=== PATIENT | female | born 1930 | race Caucasian/White ===

== ENCOUNTER 2017-10-07 12:10 | Inpatient (IN) ==
[~2017-10-07 12:10] MED LIST: Aminoglycoside Consult 1 EACH MC ONE
[2017-10-07] MEDS ORDERED: Ondansetron 4 MG/2 ML VIAL IVP PRN (12:11)
[2017-10-07] MEDS ORDERED: Atropine Sulfate 1% 40 DROP/2 ML BOTTLE SL PRN (12:11)
[2017-10-07] MEDS ORDERED: Acetaminophen 650 MG RECTAL SUPP RC PRN (12:11)
[2017-10-07] MEDS ORDERED: *HR* FentaNYL PATCH 25 MCG PATCH TD SCH (12:15)
[2017-10-07] MEDS ORDERED: Scopolamine Patch 1.5 MG PATCH.TD72 TD SCH (12:15)
--- NOTE | 2017-10-07 12:49 | Pallative History & Physical ---
Date of Encounter: 10/07/17 Time of Encounter: 12:47 Assessment and Plan (1) Acute and chronic respiratory failure ([id number]) Status: Acute Continue oxygen therapy. We will use medications for shortness of breath. A shingling general inpatient hospice today. Qualifiers: Respiratory failure complication: hypoxia Qualified Code(s): J96.21 - Acute and chronic respiratory failure with hypoxia (2) Atrial fibrillation with RVR Status: Acute Under control at this time. Continue to watch (3) Constipation Status: Acute Currently having bowel movements continue bowel regimen of suppositories. Otherwise she is really not taking any by mouth expectorate little in the way of output. Qualifiers: Constipation type: unspecified constipation type Qualified Code(s): K59.00 - Constipation, unspecified (4) Goals of care, counseling/discussion Status: Acute DNR comfort care, extubation the patient has required a large number medications to keep her comfortable. I therefore believe that this reaches the criteria for general inpatient hospice is medications are be given to frequently for a group home to be able to administer. At this time hospice cannot provide nursing care at home they cannot provide care at home adequate for this patient. Therefore the patient is here on general inpatient service. Continue to observe daily. (5) HCAP (healthcare-associated pneumonia) Status: Acute Blood cultures are clear, and the patient has completed out course of antibiotics. Internal Medicine - H&P: HPI Chief complaint: sob Admitted From: Intrahospital Transfer Plans for Post Hospital Care: Hospice - Home History of present illness: Ms. Boss is a 87 year old female The patient was originally admitted respiratory failure secondary to pneumonia and atrial fibrillation with rapid ventricular response. She did poorly on the ventilator and failed numerous CPAP trials. Finally Bashan was attempted she lasted for proximally 4 hours before needing to be reintubated. Family then gave the opinion patient would not want to be trached. And with the decision of trach no trach was reached and was for extubation and comfort care with hospice. Family has agreed to this and patient is being admitted at this point in time to hospice. Patient will be Gen. inpatient or symptom management of shortness of breath. At this time the patient is unresponsive to verbal and appears quite comfortable. Past Med Surg Social Fam HX - Past Medical History Medical history: arthritis, atrial fibrillation, CHF, COPD, DVT, dementia, diabetes, GERD, GI bleed, hyperlipidemia, hypertension, renal disease, thyroid disease, other Psychiatric history: anxiety, depression - Past Surgical History Surgical History: cataract, hysterectomy, other - Social History Smoking Status: Former smoker Smokeless Tobacco Status: No Alcohol use: none Drug use: none - Family History Father Hx Family Endocrine Disorder: Yes Mother Hx Family Endocrine Disorder: Yes Internal Medicine - H&P: Meds Clopidogrel [Plavix] 75 mg PO DAILY 06/22/15 [History] Levothyroxine [Synthroid] 100 mcg PO DAILY 06/22/15 [History] Albuterol Sulfate 3 mg IH QID PRN 08/21/15 [History] Allopurinol [Zyloprim 100 MG] 100 mg PO DAILY 04/20/16 [History] Famotidine [Pepcid] 40 mg PO DAILY PRN 04/20/16 [History] Polyethylene Glycol 3350 [MiraLAX] 17 gm PO DAILY 05/05/16 [History] Magnesium Oxide [Mag-Ox] 400 mg PO DAILY 5 Days tablet 07/06/16 [Rx] ALPRAZolam [Xanax 0.5 MG Tablet] 0.5 mg PO Q8H 09/23/17 [History] Cyanocobalamin (Vitamin B-12) [Vitamin B-12] 1,000 mcg SL DAILY 09/23/17 [ History] OxyCODONE/APAP 5/325 [Percocet 5/325 MG] 1 tab PO QID 09/23/17 [History] Oxycodone HCl 5 mg PO AD PRN 09/23/17 [History] Simethicone [Gas Relief] 125 mg PO TID 09/23/17 [History] Venlafaxine [Effexor] 75 mg PO HS 09/23/17 [History] metFORMIN [Glucophage] 1,000 mg PO BIDWM 09/23/17 [History] Digoxin [Lanoxin] 0.125 mg PO DAILY 09/26/17 [History] Metoprolol Succinate [Toprol Xl] 12.5 mg PO DAILY 09/26/17 [History] Ondansetron HCl [Zofran] 4 mg PO Q4H PRN 09/26/17 [History] 3 Allergy/AdvReac Type Severity Reaction Status Date / Time aspirin [ASA] Allergy Hives Verified 03/16/16 01:55 Hydromorphone [From Dilaudid] Allergy Hives Verified 03/16/16 01:55 codeine AdvReac Itching Verified 03/16/16 01:55 ROS unobtainable: due to mental status Palliative Care-Exam - Constitutional General appearance: Present: no acute distress - Head Head Exam: Present: atraumatic, normal inspection - Eye Eye exam: Present: normal appearance - ENT ENT exam: Present: mucous membranes moist - Respiratory Respiratory exam: Present: decreased breath sounds - Cardiovascular Cardiovascular exam: Present: irregular rhythm - GI/Abdominal Exam GI/Abdominal exam: Present: diminished bowel sounds, soft. Absent: tenderness - Catheter Type: Urethral (Dowling) - Extremities Exam Extremities exam: Present: normal inspection. Absent: pedal edema, tenderness - Neurological Exam Neurological exam: Present: altered - Psychiatric Psychiatric exam: Absent: agitated, anxious - Skin Skin exam: Present: dry, warm Palliative Quality Palliative Quality: Screen for Code Status: Yes, Screen for Goals of Care: Yes, Screen for Pain: Yes, If Pain Regimen Started, Initiate Bowel Regimen: Yes, Screen for Nausea/Vomitting: Yes Code Status: 10/07/17 12:11 Resuscitation Status: Active [RES] Stat Comment: Resuscitation Status: DNR-Comfort Care
[2017-10-07] MEDS: *HR* FentaNYL (PF) 100 MCG/2 ML VIAL IVP PRN ×2 (13:55→22:10)
[2017-10-07] MEDS: *HR* LORazepam 2 MG/ML VIAL IVP PRN ×3 (13:56→22:10)
[2017-10-07] MEDS: OXYCODONE Oral CONC 10 MG/0.5 ML ORAL.SYG PO PRN ×5 (15:20→22:10)
[2017-10-07] MEDS ORDERED: ATROPINE 1% SL PRN (15:26)
[2017-10-07] MEDS: Haloperidol Lactate 5 MG/ML VIAL IVP PRN (16:26)
[2017-10-07] MEDS: Bisacodyl 10 MG RECTAL SUPPOSITORY RC SCH (19:19)
[2017-10-08] MEDS: OXYCODONE Oral CONC 10 MG/0.5 ML ORAL.SYG PO PRN ×2 (01:09→03:21)
[2017-10-08] MEDS: Haloperidol Lactate 5 MG/ML VIAL IVP PRN (01:10)
[2017-10-08] MEDS: *HR* FentaNYL (PF) 100 MCG/2 ML VIAL IVP PRN (01:41)
[2017-10-08] MEDS: *HR* LORazepam 2 MG/ML VIAL IVP PRN (01:41)
--- NOTE | 2017-10-08 07:30 | Palliative Progress Note ---
Date of Encounter: 10/08/17 Time of Encounter: 07:15 - Assessment and plan (1) Acute and chronic respiratory failure ([id number]-[id number]) Current Visit: No Status: Acute Assessment and plan: Continue oxygen therapy. We will use medications for shortness of breath. The patient is still very tachypnea, does otherwise appear comfortable discuss with family about the possibility of starting a drip. In terms of the patient' s use of medications used 105 oral morphine equivalents in the last 16 hours, in addition to a 25 komal patch of fentanyl.. 2 mg per hour drip of morphine would not be the least bit unreasonable. Qualifiers: Respiratory failure complication: hypoxia Qualified Code(s): J96.21 - Acute and chronic respiratory failure with hypoxia (2) Atrial fibrillation with RVR Current Visit: No Status: Acute Assessment and plan: Under control at this time. Continue to watch (3) Constipation Current Visit: No Status: Acute Assessment and plan: Currently having bowel movements continue bowel regimen of suppositories. Otherwise she is really not taking any by mouth expectorate little in the way of output. Qualifiers: Constipation type: unspecified constipation type Qualified Code(s): K59.00 - Constipation, unspecified (4) Goals of care, counseling/discussion Current Visit: No Status: Acute Assessment and plan: DNR comfort care, extubation the patient has required a large number medications to keep her comfortable. I therefore believe that this reaches the criteria for general inpatient hospice is medications are be given to frequently for a jail to be able to administer. At this time hospice cannot provide nursing care at home they cannot provide care at home adequate for this patient. Therefore the patient is here on general inpatient service. Continue to observe daily. As above. She continues to use a large amount of medication having used 105 oral morphine equivalents the last 16 hours. This is in addition to a 25 g patch of fentanyl. The patient's rapid respiratory rate may represent some level of discomfort although she does not appear uncomfortable. I will consider a drip discussed with family, family is currently asleep and I will not awaken them I will talk to them later this morning. (5) HCAP (healthcare-associated pneumonia) Current Visit: No Status: Acute Assessment and plan: Blood cultures are clear, and the patient has completed out course of antibiotics. - Time Spent With Patient Total time spent is greater than 50% in coordination of care (as documented) at patient's floor/unit and/or counseling patient: - Constitutional General appearance: Present: no acute distress - Respiratory Respiratory exam: Present: decreased breath sounds, tachypnea - Cardiovascular Cardiovascular exam: Present: irregular rhythm (But rate very well controlled) - GI/Abdominal GI/Abdominal exam: Present: hypoactive bowel sounds, soft. Absent: tenderness - Extremities Exam Extremities exam: Present: pedal edema. Absent: tenderness - Psychiatric Psychiatric exam: Absent: agitated, anxious - Skin Skin exam: Present: dry, warm Palliative Quality Palliative Quality: Screen for Code Status: Yes, Screen for Goals of Care: Yes, Screen for Pain: Yes, If Pain Regimen Started, Initiate Bowel Regimen: Yes, Screen for Nausea/Vomitting: Yes Code Status: 10/07/17 12:11 Resuscitation Status: Active [RES] Stat Comment: Resuscitation Status: DNR-Comfort Care Consult Discharge Plan - Plan Referrals: Olegario Denise MD [Primary Care Provider] -
--- NOTE | 2017-10-08 09:28 | Event Note ---
Date of Encounter: 10/08/17 Time of Encounter: 09:27 Hospice medical administrative technician certification of terminal illness: Hospice benefit. Start: 10/07/2017 Hospice benefit. In: +90 days Palliative performance scale: 20% History: Agent with a history of COPD, and in the hospital initially with respiratory failure was extubated compassionately after multiple failures of CPAP and previous extubation. Patient's family wished no further aggressive care patient has completed course of antibiotics and has not improved. As the patient wishes no further aggressive care and given the fact that she has been [place] on the ventilator and now longer be an aggressive care I believe that These findings support a life expectancy of 6 months or less. I attest that I have compose the above narrative based on my review of the patient's medical records, and or on my examination of the patient. Gus Olvera M.D. Associate certified medical technician. [facility]
[2017-10-08] MEDS ORDERED: *HR* HYDROmorphone 20 MG/20 ML PCA IVC SCH (10:15)
[2017-10-08] MEDS: FentaNYL (PF) 1,000 MCG in 0.9 % Sodium Chloride 80 ML IVC SCH (11:40)
[2017-10-08] MEDS: Bisacodyl 10 MG RECTAL SUPPOSITORY RC SCH (23:04)
[2017-10-09] MEDS: FentaNYL (PF) 1,000 MCG in 0.9 % Sodium Chloride 80 ML IVC SCH (07:37)
--- NOTE | 2017-10-09 09:20 | Palliative Progress Note ---
Date of Encounter: 10/09/17 Time of Encounter: 07:00 - Assessment and plan (1) Acute and chronic respiratory failure (ahhye-be-[id number]) Current Visit: No Status: Acute Assessment and plan: Continue oxygen therapy. We will use medications for shortness of breath. Now started fentanyl drip patient is responding well to therapy.. Qualifiers: Respiratory failure complication: hypoxia Qualified Code(s): J96.21 - Acute and chronic respiratory failure with hypoxia (2) Atrial fibrillation with RVR Current Visit: No Status: Acute Assessment and plan: Under control at this time. Continue to watch No changes. (3) Constipation Current Visit: No Status: Acute Assessment and plan: Currently having bowel movements continue bowel regimen of suppositories. Otherwise she is really not taking any by mouth expectorate little in the way of output. She is having a few bowel movements continue to watch Qualifiers: Constipation type: unspecified constipation type Qualified Code(s): K59.00 - Constipation, unspecified (4) Goals of care, counseling/discussion Current Visit: No Status: Acute Assessment and plan: DNR comfort care, extubation the patient has required a large number medications to keep her comfortable. I therefore believe that this reaches the criteria for general inpatient hospice is medications are be given to frequently for a skilled nursing to be able to administer. At this time hospice cannot provide nursing care at home they cannot provide care at home adequate for this patient. Therefore the patient is here on general inpatient service. Continue to observe daily. Discussion with patient's family yesterday decision was made to start the patient on a fentanyl drip. Patient is responding well to the therapy and requiring S as needed medication and appears to be much more comfortable. We will continue to watch. (5) HCAP (healthcare-associated pneumonia) Current Visit: No Status: Acute - Time Spent With Patient Total time spent is greater than 50% in coordination of care (as documented) at patient's floor/unit and/or counseling patient: - Subjective Interval history: The patient was started on a fentanyl drip yesterday. She is resting much more comfortably now. - Constitutional General appearance: Present: no acute distress (Respiratory rate is slower unless gasping than yesterday.) - Respiratory Respiratory exam: Present: decreased breath sounds, tachypnea (But slower and now more shallow.) - Cardiovascular Cardiovascular exam: Present: irregular rhythm - GI/Abdominal GI/Abdominal exam: Present: hypoactive bowel sounds, soft. Absent: tenderness - Extremities Exam Extremities exam: Present: pedal edema (Patient is showing edema in all extremities at this time) - Neurological Exam Neurological exam: Present: altered - Psychiatric Psychiatric exam: Absent: agitated, anxious - Skin Skin exam: Present: dry, normal color, warm Palliative Quality Palliative Quality: Screen for Code Status: Yes, Screen for Goals of Care: Yes, Screen for Pain: Yes, If Pain Regimen Started, Initiate Bowel Regimen: Yes, Screen for Nausea/Vomitting: Yes Code Status: 10/07/17 12:11 Resuscitation Status: Active [RES] Stat Comment: Resuscitation Status: DNR-Comfort Care Consult Discharge Plan - Plan Referrals: Olegario Denise MD [Primary Care Provider] -
[2017-10-09] MEDS ORDERED: FentaNYL (PF) 2,500 MCG in EMPTY BAG 1 EACH IVC SCH (09:45)
[2017-10-09] MEDS: *HR* LORazepam 2 MG/ML VIAL IVP PRN (20:15)
[2017-10-10 07:35] VITALS: BP 64/41
--- NOTE | 2017-10-10 09:45 | Palliative - Consult Note ---
Date of Encounter: 10/10/17 Time of Encounter: 09:35 - Assessment and Plan (1) Generalized pain Current Visit: Yes Status: Acute Assessment and plan: Continue Fentanyl drip - currently at 50mcg/min. She appears quite comfortable and has not required any breakthrough medications during the night. (2) Restlessness Current Visit: Yes Status: Acute Assessment and plan: She has Lorazepam PRN - utilized x1 last 24 hours. Monitor (3) Goals of care, counseling/discussion Current Visit: No Status: Acute Assessment and plan: Family asleep at bedside. She has had significant decrease in blood pressure with significant mottling.. D/W [place] - primary nurse. (4) Acute and chronic respiratory failure (emblw-[id number]) Current Visit: No Status: Acute Qualifiers: Respiratory failure complication: hypoxia Qualified Code(s): J96.21 - Acute and chronic respiratory failure with hypoxia (5) HCAP (healthcare-associated pneumonia) Current Visit: No Status: Acute Palliative-CN HPI - Data of Consult Consult date: 10/10/17 Requesting Physician: Gus Olvera MD Primary Care Provider: Olegario Denise MD - Consult Narrative Palliative Care/Comfort Measures: Hospice care History of present illness: Ms. Boss is a 87 year old female patient who was originally admitted respiratory failure secondary to pneumonia and atrial fibrillation with rapid ventricular response. She was in the ICU for multiple days - was extubated once - however, went into respiratory failure and was reintubated after a short amount of time. She continue to do pooring with weaning trials. Family meetings were held and ultimately decided that pt would not want tracheostomy and be ventilator dependent. She was extubated and transitioned to comfort care. Discharged from hospital after consult with hospice was completed and she was admitted to general inpatient hospice for continued symptom management. Upon my visit, family member sleeping at the bedside. Patient's respirations are shallow. Decrease in blood pressure this am. She appears comfortable. CC: Gus Olvera MD Past Med Surg Social Fam HX - Past Medical History Medical history: arthritis, atrial fibrillation, CHF, COPD, DVT, dementia, diabetes, GERD, GI bleed, hyperlipidemia, hypertension, renal disease, thyroid disease, other Psychiatric history: anxiety, depression - Past Surgical History Surgical History: cataract, hysterectomy, other - Social History Smoking Status: Former smoker Smokeless Tobacco Status: No Alcohol use: none Drug use: none - Family History Father Hx Family Endocrine Disorder: Yes Mother Hx Family Endocrine Disorder: Yes Medications and Allergies Clopidogrel [Plavix] 75 mg PO DAILY 06/22/15 [History] Levothyroxine [Synthroid] 100 mcg PO DAILY 06/22/15 [History] Albuterol Sulfate 3 mg IH QID PRN 08/21/15 [History] Allopurinol [Zyloprim 100 MG] 100 mg PO DAILY 04/20/16 [History] Famotidine [Pepcid] 40 mg PO DAILY PRN 04/20/16 [History] Polyethylene Glycol 3350 [MiraLAX] 17 gm PO DAILY 05/05/16 [History] Magnesium Oxide [Mag-Ox] 400 mg PO DAILY 5 Days tablet 07/06/16 [Rx] ALPRAZolam [Xanax 0.5 MG Tablet] 0.5 mg PO Q8H 09/23/17 [History] Cyanocobalamin (Vitamin B-12) [Vitamin B-12] 1,000 mcg SL DAILY 09/23/17 [ History] OxyCODONE/APAP 5/325 [Percocet 5/325 MG] 1 tab PO QID 09/23/17 [History] Oxycodone HCl 5 mg PO AD PRN 09/23/17 [History] Simethicone [Gas Relief] 125 mg PO TID 09/23/17 [History] Venlafaxine [Effexor] 75 mg PO HS 09/23/17 [History] metFORMIN [Glucophage] 1,000 mg PO BIDWM 09/23/17 [History] Digoxin [Lanoxin] 0.125 mg PO DAILY 09/26/17 [History] Metoprolol Succinate [Toprol Xl] 12.5 mg PO DAILY 09/26/17 [History] Ondansetron HCl [Zofran] 4 mg PO Q4H PRN 09/26/17 [History] 3 Allergy/AdvReac Type Severity Reaction Status Date / Time aspirin [ASA] Allergy Hives Verified 03/16/16 01:55 Hydromorphone [From Dilaudid] Allergy Hives Verified 03/16/16 01:55 codeine AdvReac Itching Verified 03/16/16 01:55 ROS unobtainable: due to mental status Palliative Care-Exam - Constitutional Vitals: Temp Pulse Resp BP Pulse Ox 99.5 F 72 12 64/41 92 10/10/17 07:29 10/10/17 07:29 10/10/17 07:29 10/10/17 07:29 10/10/17 07:29 General appearance: Present: no acute distress (Respiratory rate is slower unless gasping than yesterday.) - Head Head Exam: Present: normal inspection, normocephalic - Respiratory Respiratory exam: Present: decreased breath sounds, CTAB Additional comments: Respirations shallow. Oxygen at 3 LPM - Cardiovascular Cardiovascular exam: Present: irregular rhythm, +S1, +S2 - GI/Abdominal Exam GI/Abdominal exam: Present: distended, soft - Extremities Exam Additional comments: Patient extremities mottled. - Neurological Exam Additional comments: Unresponsive for verbal/tactile stimuli - Skin Skin exam: Present: dry, mottled, pallor Consult Discharge Plan - Plan Referrals: Olegario Denise MD [Primary Care Provider] - (GIP) Palliative Quality Palliative Quality: Screen for Code Status: Yes, Screen for Goals of Care: Yes, Screen for Pain: Yes, If Pain Regimen Started, Initiate Bowel Regimen: Yes, Screen for Nausea/Vomitting: Yes Code Status: 10/07/17 12:11 Resuscitation Status: Active [RES] Stat Comment: Resuscitation Status: DNR-Comfort Care
--- NOTE | 2017-10-10 13:04 | Death Note ---
Discharge Sum: Summary - Date and Time Date of admission: 10/07/17 13:40 Date of : 10/10/17 Time of : 12:25 - Summary Details: Patient was admitted to general inpatient hospice for respiratory failure. She had been in the ICU on the ventilator and was unable to wean off vent and required intubation shortly after extubation. Family had decided that pt would not want tracheostomy and be ventilator dependent. She was compassionately extubated and transitioned to comfort care only. Under [facility] general inpatient hospice care. She passed peacefully on 10/10/2017 at 1225 pm with family at bedside. Staffing Executive was present with family as well. - Additional Data Confirmation of as documented by pronouncing clinician: no pulse, no respirations, no heart sounds Family: at bedside Additional persons at bedside: mikel Attending/PCP notified?: Yes Attending physician: Gus Olvera MD Was code activated?: No Autopsy requested?: No Hospice patient?: Yes Discharge Sum: Diag - PCOD Probable Cause of : Respiratory arrest Discharge Sum: Prov - Provider Primary care physician: Olegario Denise MD Admitting clinician: Gus Olvera Consults: 10/07/17 12:11 Consult to Palliative Care [CONS] Routine Comment: Consulting Provider: Palliative Care [facility] Reason for Consult: coverage Call Completed: Yes
== END 2017-10-10 12:25 | disposition expired | DRG 193 ==
LOC: 2ANU 13:40
PROVIDERS: ADMIT Family Medicine Hospice and Palliative Medicine; ATTEND Family Medicine Hospice and Palliative Medicine